=== PATIENT | female | born 1965 | race Caucasian/White ===

== ENCOUNTER 2024-10-30 14:41 | Outpatient (AMB) | payer OTHER, SELFPAY ==
--- NOTE | 2024-10-30 14:45 | A.OFFVIS_ITS ---
Vital Signs 10/30/24 14:54 Height 5 ft Weight 137 lb 2 oz BMI 26.8 BP 130/88 Blood Pressure Location Lt brachial Position Sitting Pulse 92 Pulse Source Pulse Oximeter Pulse Oximetry (%) 98 Oxygen Delivery Method Room Air Intake Visit Reasons: ENP-Migraines Intake Note: Patient presents to the office today as a new patient visit for migraines. Allergies shellfish derived Allergy (Severe, Verified 10/30/24 14:58) Anaphylaxis Medication List - Last Reconciled 10/30/24 by BHARATI Cadet albuterol sulfate 90 mcg/actuation inhalation dupilumab (Dupixent) mg subcut escitalopram oxalate 5 mg PO DAILY estradiol-norethindrone acet 1-0.5 mg 1 tab PO DAILY gabapentin mg PO nortriptyline mg PO ondansetron HCl 8 mg PO BID rimegepant (Nurtec ODT) mg PO HPI Comments Details: History of Present Illness The patient is a 59-year-old female presenting with migraines. Patient was previously followed by Dr Hinojosa, in upon his fpc she was seen once at [facility], however this was not a good fit for her.? And thus, patient was referred here for further evaluation and management The patient reports the onset of migraines in early 2019, coinciding with the start of ID-. She did not have a history of similar headaches prior to this period, although migraines do run in her family, with her sister having a history of migraines since adolescence. The patient describes the migraines as multifaceted headache episodes occurring four to five days a week, primarily featuring a sensation of pressure in her head, often associated with dizziness or vertigo. These episodes of vertigo began after an illness that was diagnosed as the flu but coincided with the COVID-19 pandemic. The migraines were initially preceded by a bout of vertigo significant enough to impair her daily functioning. The vertigo was associated with a sensation of being off balance, as if on a boat, although she notes it has improved over time but persists intermittently. Vestibular physical therapies w/ PT Yamila Hidalgo at [facility] and medications such as meclizine were attempted for vertigo, with limited success. She has not seen improvement in her migraines with current treatment regimens. Migraines manifest with head pain, characterized by a swelling sensation and pressure often upon waking, which may subside throughout the day. The patient notes associated symptoms include smell sensitivity, occasional light sensitivi ty, nausea, and blurred vision during headache attacks. She avoids laying down as she feels exacerbates her symptoms and expresses a preference for remaining active during the less severe episodes.? Patient does note that the nortriptyline 50 mg daily at bedtime, helps her his her attention and focus- as she states helps her to be able to read longer without becoming distracted and developing a headache. Sleep apnea and fatigue has been noted, and a mandibular device has been used unsuccessfully for management due to discomfort, while a CPAP machine was not tolerated. Results - MRI brain w/wo: No retrocochlear abnormality. Small foci of T2 prolongation in the supratentorial white matter - Home sleep study: Sleep apnea w/ AHI 8/hr, present but below threshold for surgical intervention such as Inspire - Allergy testing: Indicated multiple allergies Review of Systems - Neurologic: Reports head pressure, dizziness, smell sensitivity, blurred vision, nausea, numbness, tingling. - Ophthalmologic: Denies visual loss. - Musculoskeletal: Reports generalized stiffness, specific right knee pain and swelling. - Respiratory: Asthma improved with Dupixent. - Dermatologic: Eczema managed with Dupixent. - Cardiovascular: Reports prior high blood pressure- improved w/ diet. - Psychiatric: Reports anxiety related to symptomology. Review of pertinent positive and negative past medical history: History of neurological disorders: Denies History of ear Nose and Throat disorders: Denies History of TMJ disorders: Denies History of musculoskeletal disorders: Denies History of musculoskeletal injuries: Denies History of concussion: Denies History of head injury: Denies History of coma: Denies History of mood disorder: Denies History of respiratory disorders: Asthma History of dermatological disorder: Eczema- improved on Dupixent History of sleep apnea: Mild ALIYA with AHI 8/hr.? Did not tolerate PAP therapy.? Have mandibular device, which she does not tolerate well.? Sleeps with head elevated History of cardiovascular disease: hyperlipidemia (previously resolved) History of hematological or coagulation disorders: Denies History of cancer: Denies History of anemia: History of anemia in childhood History of metabolic or endocrine disorders: Denies History of seizure: Denies History of syncope: Denies History of genitourinary disorders: Denies History of kidney stones: Denies History of gastrointestinal disorders: Constipation History of constipation: Yes History of gynecological disorders: Menopause Reproductive health status: Desire for family planning: Denies Current use of control: None Menstrual cycle is: Postmenopausal Surgical History: - NONE Family History - Sister with migraine - Family history of stroke-on father's side. - No known familial history of cancer Headache questionnaire: Onset of initial headache symptoms: 2019 Initial precipitating cause of this headache: Possibly related to menopause or COVID Previous workup for this headache: MRI, vestibular therapy Types of headache disorders: Migraine Typical headache characteristics of this headache: Prodrome symptoms: Denies Aura: Denies Headache pain intensity: Moderate to severe Location, quality, characteristics of this headache: All over, pressure-like Associated migraine symptoms: Smell sensitivity, nausea, Not right and space dizziness, blurry vision Headache postdrome: Denies Headache aggravating factors: Stress, weather, altitude, travel, sleep Headache triggers: Stress, weather, altitude, travel, sleep Time of day this headache usually occurs: Morning Headache frequency:? Daily, but more bothersome 4 days a week Headcahe duration: 4-6 hours or all day Impact of this headache? on patient's quality of life: Severe Current acute medication? used for this headache: Nurtec Current preventative medication used for this headache: Nortriptyline, Gabapentin Current non-pharmacological interventions? for this headache: Cold caps, pressure application by Lifestyle considerations: Sleep routine: Usual bedtime: 8pm Usual? wake-up time: 7:30 am Sleep difficulties: Yes, interrupted sleep Snoring: Yes Apneas: Yes Gasping arousals: Denies Excessive daytime sleepiness: Yes Fatigue: Yes Restless sleep: Yes Nocturnal leg cramps: Yes, sometimes Restless leg syndrome: Denies Bruxism: Denies Nutritional intake: Quantity of fluid intake per day: approx 64oz, but drinks water, coconut water, and seltzer Quality of usual diet: Healthy Caffeine use: One cup of coffee per day Alcohol use: Occasionally drinks wine Marijuana use: Denies Tobacco use: Denies Other illicit substance use: Denies Fitness routine: Frequency of physical exercise: Twice a week Type physical exercise: Walking, swimming, aerobic classes Employment status: Current employment or occupation: None Shift work: None [facility] [employer] Medical History (Updated 10/30/24 @ 17:37 by BHARATI Cadet) Anemia Vertigo Seasonal allergies Right shoulder pain ALIYA (obstructive sleep apnea) Migraine headache Menopausal symptoms HTN (hypertension) Genitourinary syndrome of menopause Eczema Asthma Anxiety and depression Surgical History (Updated 10/30/24 @ 14:53 by Rowena Girard CMA) H/O colonoscopy Family History (Updated 10/30/24 @ 15:02 by Rowena Girard CMA) Mother Stroke Dementia Father Diabetes Social History (Updated 10/30/24 @ 15:03 by Rowena Girard CMA) Household Members: Spouse Housing: House Alcohol intake: current Alcohol intake frequency: a few times a week Alcohol type: wine Patient Tobacco Use Status: Never used Tobacco e-Cigarette/Vaping Use: Never Used Physical Exam Vital Signs: Last Vital Signs Pulse 92 10/30/24 14:54 BP 130/88 10/30/24 14:54 Pulse Ox 98 10/30/24 14:54 Oxygen Delivery Method Room Air 10/30/24 14:54 BMI result Body Mass Index 26.8 Const Orientation/consciousness: patient oriented x3 Resp Effort & Inspection: normal respiratory effort and able to speak in complete sentences Neuro Other: Smaller mouth opening and posterior oropharynx Mild diffuse bilateral facial palpable tenderness. Mild forward head posture Bilateral posterior cervical tightness, with overall decreased range of motion. Negative bilateral Spurling Mild swaying on Romberg. Intact tandem gait General: patient oriented x3 Cranial nerves: Yes CN's II-XII intact bilaterally Cognition (Neuro): normal cognition Gait exam (Neuro): Normal gait present Motor exam (neuro): 5/5 motor strength present throughout Deep tendon reflexes (DTR's): Right triceps reflex intensity grade: 2+, Left triceps reflex intensity grade: 2+, Rt Biceps (C5, C6): 2+, Left biceps reflex intensity grade: 2+, Right brachioradialis reflex intensity grade: 2+, Left brachioradialis reflex intensity grade: 2+, Right patellar reflex intensity grade: 3+ and Left patellar reflex intensity grade: 3+ Coordination: [id number] test normal and tandem gait normal Pupils: Normal pupillary reactivity/response: bilateral Psych Appearance: grossly normal Mental Status: mental status grossly normal Speech and movement: Normal speech and movement present Affect: normal affect Attitude: cooperative Thought process: Normal thought process present Assessment & Plan Assessment & Plan (1) Chronic migraine without aura: Code(s): G43.709 - Chronic migraine without aura, not intractable, without status migrainosus Category: Medical Qualifiers: Status migrainosus presence: without status migrainosus Intractability: not intractable Qualified Code(s): G43.709 - Chronic migraine without aura, not intractable, without status migrainosus (2) Fatigue: Code(s): R53.83 - Other fatigue Category: Medical Qualifiers: Fatigue type: unspecified Qualified Code(s): R53.83 - Other fatigue Plan Discussion Notes After discussing the patient's history and current symptoms, which are consistent with a diagnosis of chronic migraine without aura and/or vestibular migraine I advised considering changes to current migraine management. The option of replacing nortriptyline with Qulipta was presented due to ongoing headaches and nortriptyline side effects. Botox therapy was highlighted as a future alternative if headache pattern persists. Patient was informed of lifestyle adjustments, especially in exercise and hydration intake, to minimize migraine triggers. Advised following up for additional lab work and possible referral back to vestibular therapy or practice-based exercises. Pt advised to undergo: Fasting labs to assess for underlying etiologies of fatigue and restlessness For overall headache management: * Optimize good self-care, including but not limited to maintaining a healthy diet, adequate fluid intake, adequate sleep, and engaging in regular physical activity. * Patient encouraged to trial gentle yoga or water based exercise classes. * Track headaches, especially after any treatment regimen changes. Mandae is one of many headache tracking apps. * Information shared on non-pharmacological interventions which may help to alleviate headache attack burden. For light sensitivity: Patient may benefit from trying blue light filtering glasses, green glasses, green light therapy. For sound sensitivity: Patent may benefit from trying noise cancellation ear plugs. * For fatigue with history of mild ALIYA: * Check labs for underlying etiologies * Encouraged to sleep with head elevated * Advised that she would not be a candidate for inspire therapy based on her previous home sleep study results showing AHI 8 per hour. * Follow-up with ENT/Dr. Damian for allergy treatments * Future considerations: In-lab PSG * Future considerations: Revisiting vestibular PT. For acute headache treatment: Discussed importance of taking acute medications at the first sign of headache, however stressed importance of avoiding acute medication overuse (especially with combined headache medications). Continue Rimegepant ODT (Nurtec ODT) 75mg, 1 tab at onset of headache. Max of 1 tabs (75mg) per 24 hours. * May adjunct with OTC Tylenol 650mg q 4 hours, Ibuprofen 600mg q 6 hours, or Naproxen 440mg q 12 hrs prn. Do not take ibuprofen or naproxen on the same day that she uses meloxicam for right knee pain. * Potential adverse effects, include but are not limited to fatigue, nausea, dry mouth, constipation. Previous acute migraine medication trials: Sumatriptan-ineffective. Acute migraine medication contraindications: None at this time For headache prevention medication: Preventative medications should be taken routinely as prescribed for best effect, it may take several weeks for full effect to take effect. Start Riboflavin 400mg daily in a.m. Continue Magnesium citrate 500 mg daily Start Atogepant (Qulipta) 60mg daily at bedtime. Potential side effects include but are not limited to drowsiness, nausea, constipation, weight loss. Continue nortriptyline 50 mg daily at bedtime. * If Qulipta effective, goal is to wean patient off of nortriptyline as this maybe contributing to dry eye and constipation. Continue gabapentin 300 mg at bedtime-use for skin sensitivity/allodynia. Previous migraine prevention medication trials: Amitriptyline-ineffective, Topiramate-cause mood changes, and Ajovy-ineffective after 3 months. Migraine prevention medication contraindications: Beta-blockers due to symptomatic asthma diagnosis. Future considerations: Botox for chronic migraine. Will follow-up upon review of above and patient to follow-up in clinic in 3-4 months or sooner prn. Patient was informed and verbally consented to the use of an ambient scribe for clinic note documentation during this visit. Orders: Orders Comprehensive Met. Panel Today D64.9 - Anemia, unspecified, I10 - Essential (primary) hypertension Homocysteine Today D64.9 - Anemia, unspecified, I10 - Essential (primary) hypertension Vitamin B12 Today D64.9 - Anemia, unspecified, I10 - Essential (primary) hypertension Complete Blood Count Auto Diff Today D64.9 - Anemia, unspecified, I10 - Essential (primary) hypertension Ferritin Today D64.9 - Anemia, unspecified, I10 - Essential (primary) hypertension Methylmalonic Acid Today D64.9 - Anemia, unspecified, I10 - Essential (primary) hypertension Folate Today D64.9 - Anemia, unspecified, I10 - Essential (primary) hypertension IRON PROFILE Today D64.9 - Anemia, unspecified, I10 - Essential (primary) hypertension Medications: New atogepant (Qulipta) 60 mg PO BEDTIME 30 tabs 6RF 30 days G43.709 - Chronic migraine without aura, not intractable, without status migrainosus rimegepant (Nurtec ODT) 75 mg PO DAILY PRN 16 tabs 6RF migraine headache 30 days MDD 1 tab meloxicam 7.5 mg PO DAILY PRN riboflavin (vitamin B2) 400 mg PO DAILY 30 tabs 6RF 30 days G43.709 - Chronic m igraine without aura, not intractable, without status migrainosus Coding Level of Care Code New Pt Level 4 (96085) Diagnoses Chronic migraine without aura without status migrainosus, not intractable G43.709 Status migrainosus presence: without status migrainosus Intractability: not intractable Fatigue, unspecified type R53.83 Fatigue type: unspecified
[2024-10-30 14:54] VITALS: BP 130/88; PULSE 92; O2SAT 98; BMI 26.8
--- OUTSIDE RECORDS SUMMARY | 2024-10-30 15:57 | XMS_ITS | Patient Health Record ---
Author Organization [employer] [facility] Address [address] [place] [address] Care Team Providers Care Rodbuster Name Role Phone Linda De La Paz Unavailable [phone] Reason For Referral No Information Medications Medication SIG (Take, Route, Frequency, Duration) Notes Start Date End Date Status Effexor XR 37.5 MG 1 capsule with food Orally Once a day; Duration: 30 day(s) 02/26/2015 Active Loratadine 1 tablet Orally Once a day Active ZyrTEC Allergy 10 MG 1 tablet Orally Once a day Active Vivelle-Dot 0.0375 MG/24HR 1 patch to sk in Transdermal TWICE WEEKLY; Duration: 90 days 08/26/2015 Active Provera 5 MG 1 tablet Orally Once a day, DAYS 1 TO 12; Duration: 90 days 08/26/2015 Active Vivelle-Dot 0.05 MG/24HR 1 patch to skin Transdermal TWICE WEEKLY; Duration: 90 days 11/25/2015 Active Prometrium 200 MG 1 CAPSULE Orally Onc e a day FOR 15 DAYS Q 3 MONTHS; Duration: 90 days 11/25/2015 Active Albuterol Active Problems Problem Type SNOMED Code ICD Code Onset Dates Problem Status W/U Status Risk Notes Problem Menopausal and female climacteric states (N95.1) Active confirmed Plan Of Treatment Pending Test Test Name Order Date Pap IG, Ct, rfx HPV all pth 05/31/2014 MAMMOGRAM, SCREENING 05/31/2014 Insurance Providers Payer Name Payer Address Payer Phone Subscriber Number Group Number Insured Name Patient Relationship to Insured Coverage Start Date Coverage End Date [facility] [address] [place] [address] [id number] [employer] MAC Self - patient is the insured Medical (General) History Medical History History ICD Code Menopausal and female climacteric states N95.1 Generalized skin eruption due to drugs a nd medicaments taken internally L27.0 Other asthma J45.998 Allergic rhinitis, unspecified J30.9 Hormone replacement therapy (postmenopau hanane) Z79.890 Surgical History Surgery Date(Month/Year) Left Knee Tumor Removed / Drained, [facility] Hospitalization History Reason Date(Month/Year) 3 Vaginal Deliveries
--- OUTSIDE RECORDS SUMMARY | 2024-10-30 15:57 | XMS_ITS | Clinical Summary ---
Author Organization [employer] Address [address] [place] [address] Care Team Providers Care Interstate Planner Name Role Phone Unavailable Primary Care Provider Unavailabl e Social History Tobacco Use Types Packs/Day Years Used Date Smoking Tobacco: Never Assessed Comments Unknown Sex and Gender Information Value Date Recorded Sex Assigned at Not on file Legal Sex Female 2:13 AM EST Gender Identity Not on file Sexual Orientation Not on file Plan of Treatment Health Maintenance Due Date Last Done Comments CT Colonography 1966 Colonoscopy 1966 Colorectal Cancer Screening 1966 Depression Screening 1966 FIT DNA/Cologuard 1966 FIT 1966 FOBT 1966 HIV Screening 1966 SDOH Screening 1966 Sigmoidoscopy 1966 Disability Screening 1966 Alcohol/Substance Use Screening 1978 Tobacco Screening 1978 Hepatitis C Screening 02/01/1984 DTaP/Tdap/Td Vaccines (1 - Tdap) 1985 Hepatitis B Vaccines (1 of 3 - 19+ 3-dose series) 1985 Pap Smear 1987 Cervical Cancer Screening 02/01/1996 HPV/Cotest 02/01/1996 Mammogram 2006 Pneumococcal Vaccine: 50+ Ye ars (1 of 1 - PCV) 02/01/2016 Zoster Vaccines (1 of 2) 02/01/2016 COVID-19 Vaccine ( - 2023-2 5 season) 2023 Influenza Vaccine (#1) 2024 RSV Patients and Pa tients Aged 60 years or older (1 - 1-dose 75+ series) 2041 HIB Vaccines Aged Out No longer eligi ble based on patient's age to complete this topic HPV Vaccines Aged Out No longer eligi ble based on patient's age to complete this topic Hepatitis A Vaccines Aged Out No long er eligible based on patient's age to complete this topic IPV Vaccines Aged Out No longer eligi ble based on patient's age to complete this topic Meningococcal B Vaccine Aged Out No l onger eligible based on patient's age to complete this topic Meningococcal Vaccine Aged Out No lakshmi ivan eligible based on patient's age to complete this topic RSV under 20 months Aged Out No longe r eligible based on patient's age to complete this topic Rotavirus Vaccines Aged Out No longer eligible based on patient's age to complete this topic
--- OUTSIDE RECORDS SUMMARY | 2024-10-30 15:57 | XMS_ITS | Data Portability ---
Author Organization [facility], [facility] Address [address] [place] [address] Care Team Providers Care Case Filler Name Role Phone UMANG ALAN Primary Care Provider Assessment No assessment recorded. Plan of Treatment Reminders Order Date Submit Date Provider Last Modified By Organization Details Last Modified Time Details Appointments RECHECK 15 2024 11:00A M Omar Chandler PA-C Not available Not available Not available Lab None recorded . Referral None recorded . Procedures None recorded . Surgeries None recorded . Imaging None recorded . Medication Orders None recorded . Patient TargetsNo targets recorded. Patient InstructionsNo instructions recorded. Reason for Referral None Reported. Results Created Date Observation Date Name Description Value Unit Range Abnormal Flag Note LastModifiedBy Organization Detail LastModifiedTime 12/18/19 24 10/23/2022 [email or web address] ng/jill doe tic resul t No observ ation record ed. [email or web address] Not Available 11/19 01:09:28 Result Notes None recorded. Problems Name Problem SNOMED Code Status Onset Date Resolution Date Notes Provider Name and Address Organization Details Recorded Time Osteoarthritis of knee 842053892 Active 2023 Omar Chandler PA-C [address], [place], [address], [facility] 06:42:43 Problem Notes None recorded. Procedures Surgical History Date Name Laterality Status Provider Name and Address Organization Details Recorded Time 08/30/2024 Sports Knee 4&1 completed Omar Chandler PA-C [address], [place], [address], [facility] 08/30/2024 13:50:21 06/07/2024 Sports Knee 4&1 completed Omar Chandler PA-C [address], [place], [address], [facility] 06/05/2024 06:10:20 03/06/2024 Sports Knee 4&1 completed Omar Chandler PA-C [address], [place], [address], [facility] 03/06/2024 06:25:46 11/24/2023 Sports Knee 4&1 completed Omar Chandler PA-C [address], [place], [address], [facility] 11/24/2023 05:43:56 08/18/2023 Sports Knee 4&1 completed Omar Chandler PA-C [address], [place], [address], [facility] 08/18/2023 06:42:35 Imaging Results None recorded. Procedure Notes None recorded. Medical Equipment None Reported. Medications Name Sig Start Date Stop Date Status Note LastModified by Organization Details LastModified Time cetirizine 10 mg tablet TAKE 1 TABLET BY MOUTH EVERY DAY active Not Available Not Available No t Available valacyclovir 1 gram tablet TAKE 1 TABLET BY MOUTH EVERY 12 HOURS FOR 7 DAYS active Not Available Not Available N ot Available ondansetron HCl 8 mg tablet TAKE ONE TABLET BY MOUTH TWICE A DAY active Not Available Not Available No t Available meloxicam 15 mg tablet TAKE 1 TABLET BY MOUTH EVERY DAY WITH FOOD active Not Available Not Available No t Available topiramate 25 mg tablet TAKE 1 TABLET AT BEDTIME, INCREASE BY 1 TABLET AT BEDTIME PER WEEK NEEDED TO 4 TABLETS AT BEDTIME active Not Available Not Available No t Available estradiol-no rethindrone acet 1 mg-0.5 mg tablet TAKE ONE TABLET BY MOUTH EVERY DAY active Not Available Not Available No t Available minoxidil 2.5 mg tablet TAKE 1/2 TABLET BY MOUTH IN THE MORNING active Not Available Not Available Not Available nortriptylin e 25 mg capsule TAKE TWO CAPSULES BY MOUTH EVERY DAY AT BEDTIME ; MAY INCREASE BY 1/NIGHT EVERY 2 WEEKS, UP TO 5 ONCE DAILY AT BEDTIME active Not Available Not Available No t Available betamethason e dipropionate 0.05 % topical cream PLEASE SEE ATTACHED FOR DETAILED DIRECTIONS active Not Available Not Available N ot Available gabapentin 300 mg capsule TAKE ONE CAPSULE BY MOUTH EVERY DAY AT BEDTIME ; INCREASE BY TAKE ONE CAPSULE BY MOUTH EVERY OTHER DAY ; UP TO 2 THREE TIMES A DAY active Not Available Not Available No t Available epinephrine 0.3 mg/0.3 mL injection, auto-injecto r USE 1 AUTO INJECTOR PEN NEEDED ; SINGLE USE active Not Available Not Available N ot Available estradiol 0.01% (0.1 mg/gram) vaginal cream APPLY 0.5 GRAMS AT VAGINAL OPENING DAILY AT BEDTIME X 2 WEEKS, THEN 0.5 GRAMS 2-3X PER WEEK active Not Available Not Available No t Available albuterol sulfate HFA 90 mcg/actuatio n aerosol inhaler TAKE 2 PUFFS BY MOUTH EVERY 4 TO 6 HOURS NEEDED active Not Available Not Available No t Available propranolol 20 mg tablet TAKE 1 TABLET BY MOUTH EVERY DAY active Not Available Not Available No t Available ondansetron 4 mg disintegrati ng tablet DISSOLVE ONE TABLET BY MOUTH EVERY 6 HOURS NEEDED active Not Available Not Available No t Available bupropion HCl XL 150 mg 24 hr tablet, extended release TAKE 1 TABLET BY MOUTH EVERY 24 HOURS active Not Available Not Available No t Available escitalopram 5 mg tablet TAKE ONE TABLET BY MOUTH EVERY DAY active Not Available Not Available No t Available topiramate 50 mg tablet TAKE 3 TABLETS BY MOUTH DAILY AT BEDTIME active Not Available Not Available N ot Available nitrofuranto in monohydrate/ macrocrystal s 100 mg capsule TAKE 1 CAPSULE BY MOUTH TWICE A DAY FOR 7 DAYS active Not Available Not Available No t Available pregabalin 100 mg capsule TAKE 1 CAPSULE BY MOUTH TWICE DAILY active Not Available Not Available No t Available diclofenac 1 % topical gel APPLY TOPICALLY FOUR TIMES A DAY NEEDED PAIN active Not Available Not Available Not Available Wixela Inhub 100 mcg-50 mcg/dose powder for inhalation TAKE 1 PUFF BY MOUTH EVERY 12 HOURS IN THE MORNING AND IN THE EVENING active Not Available Not Available No t Available Nurtec ODT 75 mg disintegr[address] ng tablet PLACE 1 TABLET ON TOP OF TONGUE ; ALLOW TO DISSOLVE THEN SWALLOW BY MOUTH ONCE NEEDED FOR MIGRAINE ; MAX 1 DOSE / 24 HOURS active Not Available Not Available N ot Available Ajovy 225 mg/1.5 mL subcutaneous auto-injecto r INJECT 225 MG INTO THE SKIN EVERY 28 DAYS active Not Available Not Available No t Available Dupixent 300 mg/2 mL subcutaneous pen injector active Not Available Not Available Not Available Vitals Date Recorded Body height Body mass index (BMI) Body weight Provider Name and Address Organization Details Last Updated DateTime 06/07/2024 152.4 cm 26.6 kg/m2 93277.56 g Omar Chandler PA-C [address] [facility], [place], [address], [facility] 06/07/2024 13:25:49 Date Recorded Body height Body mass index (BMI) Body weight Provider Name and Address Organization Details Last Updated DateTime 08/18/2023 152.4 cm 26.6 kg/m2 20321.56 g Omar Chandler PA-C [address] [facility], [place], [address], [facility] 08/18/2023 10:08:00 Date Recorded Body height Body mass index (BMI) Body weight Provider Name and Address Organization Details Last Updated DateTime 08/30/2024 152.4 cm 26.6 kg/m2 97252.56 g Omar Chandler PA-C [email or web address] [facility], [place], [address], [facility] 08/30/2024 14:05:19 Date Recorded Body height Body mass index (BMI) Body weight Provider Name and Address Organization Details Last Updated DateTime 11/24/2023 152.4 cm 26.6 kg/m2 93012.56 g Omar Chandler PA-C [address] [facility], [place], [address], [facility] 11/24/2023 09:10:34 Date Recorded Body height Body mass index (BMI) Body weight Provider Name and Address Organization Details Last Updated DateTime 03/06/2024 152.4 cm 26.6 kg/m2 43037.56 g Omar Chandler PA-C [address], [place], [address], [facility] 03/06/2024 09:17:00 Social History Question Answer Notes LastModified by Organizat ion Details LastModified Time What Is Your Relationship Status? [email or web address] Information not available 08/30/2024 Sex: Unknown Functional Status None recorded. Mental Status None recorded. Family History Nothing Reported. Medical History Condition Response Anxiety/Depression Y Acid Reflux (GERD) Y Asthma Y Gynecological HistoryNo gynecological history recorded. Obstetrics History GPAL:G 0 P 0 0 0 0 Past Encounters Encounter ID Performer Location Encounter Start Date Encounter Closed Date Diagnosis/Indication Diagnosis SNOMED-CT Code Diagnosis ICD10 Code Diagnosis Note [id number] Omar Chandler PA-C [address] [place] [address] 08/18/2023 09:48:34 08/31/2023 14:16:20 Osteoarthritis of knee 268821831 M17.9 [id number] Omar Chandler PA-C [address] [place] [address] 11/24/2023 09:05:47 12/15/2023 10:33:11 Osteoarthritis of knee 390091310 M17.9 [id number] Omar Chandler PA-C [address] [place] [address] 03/06/2024 09:07:19 03/23/2024 14:58:16 Osteoarthritis of knee 364045222 M17.9 [id number] Omar Chandler PA-C [facility] [address] [place] [address] 06/07/2024 13:16:25 06/22/2024 15:05:15 Osteoarthritis of knee 056645540 M17.9 [id number] Omar Chandler PA-C [facility] [address] [place] [address] 08/30/2024 13:51:31 09/04/2024 08:34:01 Osteoarthritis of knee 830879392 M17.9 Health Concerns Section Related Observation LastModified by Organization Detai ls LastModified Time None Recorded Concern Status LastModified by Organization Details LastModified Time None Recorded Advance Directives Directive None Recorded Payers Insurance Date Sequence Insurance Name Policy Number Policy Judd Covered Member ID Judd Member ID Guarantor Name 08/30/2024 2 [place] [facility] Danay Morley [id number] Danay Morley 08/30/2024 1 [facility] [id number] Danay Morley [id number] Danay Morley Notes Date Note Type Note Provider Name and Address Organization Details Recorded Time 08/18/2023 text/html I am seeing the patient today under the supervision of Dr. Wilson who was available but who did not see the patient. HPI: Patient is seen today for follow-up evaluation of their. Right knee MRI. She continues to have a fair amount of day-to-day pain with weightbearing activity. She has been evaluated by my colleague MRI scan was ordered. She is back today to review findings. MRI reviewed previously opted to go through conservative treatment. She admittedly has not been a lot of physical therapy exercises reports some increased pain MRI findings: Independent reviewed today of the right knee. Findings include mild degenerative signal in the posterior meniscus, but full-thickness chondral defect involving medial femoral condyle, patellofemoral joint with mild lateral facet arthrosis, large complex, septated elam cyst. Intact cruciate and collateral ligaments. PHYSICAL EXAMINATION: The patient is well appearing and in no apparent distress. Alert and oriented x3. Gait is symmetric.Right Knee ROM is full, stability intact both anterior, posterior, and varus/valgus stress at both 0 and 30 degrees, Significant Medial compartment and patellofemoral tenderness. Negative Cecilia's maneuver. Patella crepitus, 1+ effusion, 4/5 strength. IMPRESSION: Right knee medial femoral condyle full-thickness chondral defect with small inconsequential medial meniscus tear. PLAN: Discussed nature the findings today, I think she is a poor candidate for knee arthroscopy with relatively low yield. For that reason, I would recommend conservative treatment, aspiration, injection therapy. Omar Chandler PA-C [address] [facility] [address], [place], [address], [facility] 08/18/2023 10:36:32 11/24/2023 text/html I am seeing the patient today under the supervision of Dr. Guerra who was available but who did not see the patient. HPI: Patient is seen today for follow-up evaluation of their. Right knee MRI. She continues to have a fair amount of day-to-day pain with weightbearing activity. She has been evaluated by my colleague MRI scan was ordered. She is back today to review findings. MRI reviewed previously opted to go through conservative treatment. She admittedly has not been a lot of physical therapy exercises reports some increased pain MRI findings: Independent reviewed today of the right knee. Findings include mild degenerative signal in the posterior meniscus, but full-thickness chondral defect involving medial femoral condyle, patellofemoral joint with mild lateral facet arthrosis, large complex, septated elam cyst. Intact cruciate and collateral ligaments. PHYSICAL EXAMINATION: The patient is well appearing and in no apparent distress. Alert and oriented x3. Gait is symmetric.Right Knee ROM is full, stability intact both anterior, posterior, and varus/valgus stress at both 0 and 30 degrees, Significant Medial compartment and patellofemoral tenderness. Negative Cecilia's maneuver. Patella crepitus, 1+ effusion, 4/5 strength. IMPRESSION: Right knee medial femoral condyle full-thickness chondral defect with small inconsequential medial meniscus tear. PLAN: Discussed nature the findings today, I think she is a poor candidate for knee arthroscopy with relatively low yield. For that reason, I would recommend conservative treatment, aspiration, injection therapy. Omar Chandler PA-C [address] [facility] [address], [place], [address], [facility] 11/24/2023 09:49:02 03/06/2024 text/html I am seeing the patient today under the supervision of Dr. Guerra who was available but who did not see the patient.HPI: Patient is seen today for follow-up evaluation of their. Right knee MRI. She continues to have a fair amount of day-to-day pain with weightbearing activity. She has been evaluated by my colleague MRI scan was ordered. She is back today to review findings. MRI reviewed previously opted to go through conservative treatment. She admittedly has not been a lot of physical therapy exercises reports some increased pain Interval history: Danay returns today for follow-up evaluation regarding her right knee. She has intermittent pain and discomfort she has short-term benefit from previous corticosteroid injection. She is not ready to the point where she wants to consider total knee arthroplasty.MRI findings: Independent reviewed today of the right knee. Findings include mild degenerative signal in the posterior meniscus, but full-thickness chondral defect involving medial femoral condyle, patellofemoral joint with mild lateral facet arthrosis, large complex, septated elam cyst. Intact cruciate and collateral ligaments.PHYSICAL EXAMINATION: The patient is well appearing and in no apparent distress. Alert and oriented x3. Gait is symmetric.Right Knee ROM is full, stability intact both anterior, posterior, and varus/valgus stress at both 0 and 30 degrees, Significant Medial compartment and patellofemoral tenderness. Negative Cecilia's maneuver. Patella crepitus, 1+ effusion, 4/5 strength. IMPRESSION: Right knee medial femoral condyle full-thickness chondral defect with small inconsequential medial meniscus tear. PLAN: Discussed nature the findings today, I think she is a poor candidate for knee arthroscopy with relatively low yield. For that reason, I would recommend conservative treatment, aspiration, injection therapy. Omar Chandler PA-C [address] [facility] [address] [facility], [place], [address], [facility] 03/06/2024 09:53:40 06/07/2024 text/html I am seeing the patient today under the supervision of Dr. Guerra who was available but who did not see the patient.HPI: Patient is seen today for follow-up evaluation of their. Right knee MRI. She continues to have a fair amount of day-to-day pain with weightbearing activity. She has been evaluated by my colleague MRI scan was ordered. She is back today to review findings. MRI reviewed previously opted to go through conservative treatment. She admittedly has not been a lot of physical therapy exercises reports some increased pain Clinical Update: Danay returns today for follow-up evaluation regarding her right knee. She has intermittent pain and discomfort she has short-term benefit from previous corticosteroid injection. She is not ready to the point where she wants to consider total knee arthroplasty.MRI findings: Independent reviewed today of the right knee. Findings include mild degenerative signal in the posterior meniscus, but full-thickness chondral defect involving medial femoral condyle, patellofemoral joint with mild lateral facet arthrosis, large complex, septated elam cyst. Intact cruciate and collateral ligaments.PHYSICAL EXAMINATION: The patient is well appearing and in no apparent distress. Alert and oriented x3. Gait is symmetric.Right Knee ROM is full, stability intact both anterior, posterior, and varus/valgus stress at both 0 and 30 degrees, Significant Medial compartment and patellofemoral tenderness. Negative Cecilia's maneuver. Patella crepitus, 1+ effusion, 4/5 strength. IMPRESSION: Right knee medial femoral condyle full-thickness chondral defect with small inconsequential medial meniscus tear. PLAN: Discussed nature the findings today, I think she is a poor candidate for knee arthroscopy with relatively low yield. For that reason, I would recommend conservative treatment, aspiration, injection therapy. Omar Chandler PA-C [address] [facility] [address] [address], [place], [address], [facility] 06/07/2024 13:55:07 08/30/2024 text/html I am seeing the patient today under the supervision of Dr. Merchant who was available but who did not see the patient.HPI: Patient is seen today for follow-up evaluation of their. Right knee MRI. She continues to have a fair amount of day-to-day pain with weightbearing activity. She has been evaluated by my colleague MRI scan was ordered. She is back today to review findings. MRI reviewed previously opted to go through conservative treatment. She admittedly has not been a lot of physical therapy exercises reports some increased pain Clinical Update: Danay returns today for follow-up evaluation regarding her right knee. She has intermittent pain and discomfort she has short-term benefit from previous corticosteroid injection. She is not ready to the point where she wants to consider total knee arthroplasty.MRI findings: Independent reviewed today of the right knee. Findings include mild degenerative signal in the posterior meniscus, but full-thickness chondral defect involving medial femoral condyle, patellofemoral joint with mild lateral facet arthrosis, large complex, septated elam cyst. Intact cruciate and collateral ligaments.PHYSICAL EXAMINATION: The patient is well appearing and in no apparent distress. Alert and oriented x3. Gait is symmetric.Right Knee ROM is full, stability intact both anterior, posterior, and varus/valgus stress at both 0 and 30 degrees, Significant Medial compartment and patellofemoral tenderness. Negative Cecilia's maneuver. Patella crepitus, 1+ effusion, 4/5 strength. IMPRESSION: Right knee medial femoral condyle full-thickness chondral defect with small inconsequential medial meniscus tear. PLAN: Discussed nature the findings today, I think she is a poor candidate for knee arthroscopy with relatively low yield. For that reason, I would recommend conservative treatment, aspiration, injection therapy. Omar Chandler PA-C [address], [place], [address], [facility] 08/30/2024 15:00:00 OBGyn Episode No OBEpisode recorded.
--- OUTSIDE RECORDS SUMMARY | 2024-10-30 15:57 | XMS_ITS | Clinical Summary ---
Author Organization [facility] Address [address] [place] [address] Care Team Providers Care Scaffold Worker Name Role Phone Unavailable Primary Care Provider Unavailabl e Social History Tobacco Use Types Packs/Day Years Used Date Smoking Tobacco: Never Assessed Comments Unknown Sex and Gender Information Value Date Recorded Sex Assigned at Not on file Legal Sex Female 1:14 PM EST Gender Identity Not on file Sexual Orientation Not on file Plan of Treatment Health Maintenance Due Date Last Done Comments Hepatitis C Virus Screening 1966 HIV Screening 1979 DTaP/Tdap/Td Vaccines (1 - Tdap) 1985 Hepatitis B Vaccines (1 of 3 - 19+ 3-dose series) 01/17 Pap Smear (Ages 21-65) 1987 Mammogram 2006 Colonoscopy 2011 Pneumococcal Vaccines 50+ (1 of 1 - PCV) 02/01/2016 Zoster (Shingles) Vaccine (1 of 2) 02/01/2016 COVID-19 Vaccine ( - season) 2023 Influenza Vaccine 11/17/2024 Insurance [facility]
--- OUTSIDE RECORDS SUMMARY | 2024-10-30 15:57 | XMS_ITS | Clinical Summary ---
Author Organization [facility] Address [address] [place] [phone] Phone Care Team Providers Care Bisque Finisher Name Role Phone Ligia Pringle MD Primary Care Provider [phone] Allergies No known active allergies Medications albuterol HFA (Proventil HFA) 90 mcg/actuation inhaler Inhale 2 puffs by mouth every 6 (six) hours if needed for wheezing. 6.7 g 09/29/19 26 Active fluticasone propion-salmete roL (ADVAIR DISKUS) 100-50 mcg/dose diskus inhalerIndicati ons:bronchospas m prevention with COPD,maintenanc e therapy for asthma Inhale 1 puff by mouth 2 (two) times a day. Rinse mouth with water after use to reduce aftertaste and incidence of candidiasis. Do not swallow. 1 each 3 5 12/28/19 25 Active Surgical History Surgery Date Site/Laterality Comments OTHER SURGICAL HISTORY 2010 PROCEDURE: ND EXC B9 LESION MRGN XCP SK TG T/A/L 0.6-1.0 CM COLONOSCOPY June 2016 PROCEDURE: HISTORICAL COLONOSCOPY; COMMENT: Normal Medical History Medical History Date Comments Asthma DX:Asthma Seasonal allergies 02/24/2013 DX:Seasonal a llergies Family History Relation Name Status Comments Brother 1 Alive Brother 2 Alive Brother 3 alcoholic Daughter Alive Father Alive DM II Mother (Age 60s) Asthma, E DIOR, tobacco Sister 1 Alive Migraines Sister 2 Alive In wheelchair Sister 3 Alive Son 1 Alive Son 2 Alive Social History Tobacco Use Types Packs/Day Years Used Date Smoking Tobacco: Never Smokeless Tobacco: Never Alcohol Use Standard Drinks/Week Comments Yes 0 (1 standard drink = 0.6 oz pur e alcohol) Comments Unknown Sex and Gender Information Value Date Recorded Sex Assigned at Female 06/20/2024 9:55 AM EST Legal Sex Female 11:06 PM EST Gender Identity Female 06/20/2024 9:55 AM EST Sexual Orientation Straight 06/20/2024 9: 55 AM EST Obstetrics History Plan of Treatment Upcoming Encounters Date Type Department Care Team ([facility] st Contact Info) Description 01/02/2025 10:00 AM EDT Office Visit Pulmonolgy - [place] [address] [facility] [address] [place] [phone] Chirag Fenton MD [address] [facility] [address] [place] [address] Health Maintenance Due Date Last Done Comments Breast Cancer Screening 1966 Hepatitis B Vaccines (1 of 3 - 19+ 3-dose series) 1985 Cervical Cancer Screening: Pap Smear 1987 DTaP,Tdap,and Td Vaccines (2 - Td or Tdap) 02/24/2023 02/24/2013 Colorectal Cancer Screening: Colonoscopy 05/19/2023 Depression Screening 05/19/2023 HIV Screening 05/19/2023 Hepatitis C Screening 05/19/2023 Social Influencers of Health Screening 05/19/2023 Influenza Vaccine (#1) 2024 , 02/26/2022, 03/04/2021, Additional history exists Pneumococcal Vaccine: 50+ Years Completed 09/24/2022, 06/02/2016 COVID-19 Vaccine Completed 12/27/2023, 01/2022, 03/08/2021, Additional history exists Zoster Vaccines Completed 04/17/2024, 01/26/2024 HIB Vaccines Aged Out No longer eligi [...] on patient's age to complete this topic MMR Vaccines Aged Out No longer eligi ble based on patient's age to complete this topic Meningococcal ACWY Vaccine Aged Out N o longer eligible based on patient's age to complete this topic Meningococcal B Vaccine Aged Out No l onger eligible based on patient's age to complete this topic RSV Immunization Patients Under 20 months Aged Out No longer eligible based on patient's age to complete this topic Varicella Vaccines Aged Out No longer eligible based on patient's age to complete this topic Insurance MEDICAID - [place] Care Teams Bisque Finisher Relationship Specialty Start Date End Date Ligia Pringle MD [address] [place] [address] PCP - General Internal Medicine 09/28/24
== END 2024-10-30 16:22 | disposition home or self-care (01) ==
LOC: HO.HSMS 14:42
PROVIDERS: PCP Nurse Practitioner Women's Health; Visit Provider Nurse Practitioner Family
DX: G43.709 Chronic migraine without aura, not intractable, without status migrainosus (principal); R53.83 Other fatigue
CPT/HCPCS: 99204

== ENCOUNTER 2025-02-06 09:01 | Outpatient (AMB) | payer OTHER, MEDICAID, SELFPAY ==
--- NOTE | 2025-02-06 08:41 | A.OFFVIS_ITS ---
Intake Visit Reasons: 3 mo follolw up Intake Note: Patient presents to the office today as a new patient visit for migraines. Pan Helper Required: No Allergies shellfish derived Allergy (Severe, Verified 10/30/24 14:58) Anaphylaxis Medication List - Last Reconciled 02/06/25 by BHARATI Cadet albuterol sulfate 90 mcg/actuation inhalation dupilumab (Dupixent) mg subcut escitalopram oxalate 5 mg PO DAILY estradiol-norethindrone acet 1-0.5 mg 1 tab PO DAILY gabapentin mg PO galcanezumab-gnlm (Emgality Pen) 240 mg (2 mL) subcut ONCE 30 days meloxicam 7.5 mg PO DAILY PRN nortriptyline mg PO ondansetron HCl 8 mg PO BID riboflavin (vitamin B2) 400 mg PO DAILY 30 days rimegepant (Nurtec ODT) 75 mg PO DAILY PRN 30 days MDD 1 tab HPI Comments Details: 02/06/2025, HPI: She is currently experiencing 3-4 migraine attacks per week. She started Qulipta 60mg daily. She states it was helpful for the headaches, however she stopped it as it caused significant nausea and GI upset. Also, after initially covering the Qulipta, her insurance denied it. Thus, the request for Qulipta was changed to Emgality. The Emgality request has just received Prior authorization approval, and thus she has not received or started it yet. She is using Nurtec as needed with effect. She often feels dizzy and tired and poorly focused. She states she had previously requested labs done through [facility], however we do not have these results yet. She previously did PT with/ Yamila Sharma at [facility]- but it is a bit better. She wonders if she could have POTs and try Adderall. She denies postural tachycardia symptoms. She has not tolerated using a mouthguard for her snoring. Sleeps with her head elevated. 10/30/2024, initial HPI: The patient is a 59-year-old female presenting with migraines. Patient was previously followed by Dr Hinojosa, in upon his long term she was seen once at [facility], however this was not a good fit for her.? And thus, patient was referred here for further evaluation and management The patient reports the onset of migraines in early 2019, coinciding with the start of COVID-19. She did not have a history of similar headaches prior to this period, although migraines do run in her family, with her sister having a history of migraines since adolescence. The patient describes the migraines as multifaceted headache episodes occurring four to five days a week, primarily featuring a sensation of pressure in her head, often associated with dizziness or vertigo. These episodes of vertigo began after an illness that was diagnosed as the flu but coincided with the COVID-19 pandemic. The migraines were initially preceded by a bout of vertigo significant enough to impair her daily functioning. The vertigo was associated with a sensation of being off balance, as if on a boat, although she notes it has improved over time but persists intermittently. Vestibular physical therapies w/ PT Yamila lopez [facility] and medications such as meclizine were attempted for vertigo, with limited success. She has not seen improvement in her migraines with current treatment regimens. Migraines manifest with head pain, characterized by a swelling sensation and pressure often upon waking, which may subside throughout the day. The patient notes associated symptoms include smell sensitivity, occasional light sensitivity, nausea, and blurred vision during headache attacks. She avoids laying down as she feels exacerbates her symptoms and expresses a preference for remaining active during the less severe episodes.? Patient does note that the nortriptyline 50 mg daily at bedtime, helps her his her attention and focus- as she states helps her to be able to read longer without becoming distracted and developing a headache. Sleep apnea and fatigue has been noted, and a mandibular device has been used unsuccessfully for management due to discomfort, while a CPAP machine was not tolerated. Results - MRI brain w/wo: No retrocochlear abnormality. Small foci of T2 prolongation in the supratentorial white matter - Home sleep study: Sleep apnea w/ AHI 8/hr, present but below threshold for surgical intervention such as Inspire - Allergy testing: Indicated multiple allergies Review of Systems - Neurologic: Reports head pressure, dizziness, smell sensitivity, blurred vision, nausea, numbness, tingling. - Ophthalmologic: Denies visual loss. - Musculoskeletal: Reports generalized stiffness, specific right knee pain and swelling. - Respiratory: Asthma improved with Dupixent. - Dermatologic: Eczema managed with Dupixent. - Cardiovascular: Reports prior high blood pressure- improved w/ diet. - Psychiatric: Reports anxiety related to symptomology. Review of pertinent positive and negative past medical history: History of neurological disorders: Denies History of ear Nose and Throat disorders: Denies History of TMJ disorders: Denies History of musculoskeletal disorders: Denies History of musculoskeletal injuries: Denies History of concussion: Denies History of head injury: Denies History of coma: Denies History of mood disorder: Denies History of respiratory disorders: Asthma History of dermatological disorder: Eczema- improved on Dupixent History of sleep apnea: Mild ALIYA with AHI 8/hr.? Did not tolerate PAP therapy.? Have mandibular device, which she does not tolerate well.? Sleeps with head elevated History of cardiovascular disease: hyperlipidemia (previously resolved) History of hematological or coagulation disorders: Denies History of cancer: Denies History of anemia: History of anemia in childhood History of metabolic or endocrine disorders: Denies History of seizure: Denies History of syncope: Denies History of genitourinary disorders: Denies History of kidney stones: Denies History of gastrointestinal disorders: Constipation History of constipation: Yes History of gynecological disorders: Menopause Reproductive health status: Desire for family planning: Denies Current use of control: None Menstrual cycle is: Postmenopausal Surgical History: - NONE Family History - Sister with migraine - Family history of stroke-on father's side. - No known familial history of cancer Headache questionnaire: Onset of initial headache symptoms: 2020 Initial precipitating cause of this headache: Possibly related to menopause or COVID Previous workup for this headache: MRI, vestibular therapy Types of headache disorders: Migraine Typical headache characteristics of this headache: Prodrome symptoms: Denies Aura: Denies Headache pain intensity: Moderate to severe Location, quality, characteristics of this headache: All over, pressure-like Associated migraine symptoms: Smell sensitivity, nausea, Not right and space dizziness, blurry vision Headache postdrome: Denies Headache aggravating factors: Stress, weather, altitude, travel, sleep Headache triggers: Stress, weather, altitude, travel, sleep Time of day this headache usually occurs: Morning Headache frequency:? Daily, but more bothersome 4 days a week Headcahe duration: 4-6 hours or all day Impact of this headache? on patient's quality of life: Severe Current acute medication? used for this headache: Nurtec Current preventative medication used for this headache: Nortriptyline, Gabapentin Current non-pharmacological interventions? for this headache: Cold caps, pressure application by Lifestyle considerations: Sleep routine: Usual bedtime: 8pm Usual? wake-up time: 7:30 am Sleep difficulties: Yes, interrupted sleep Snoring: Yes Apneas: Yes Gasping arousals: Denies Excessive daytime sleepiness: Yes Fatigue: Yes Restless sleep: Yes Nocturnal leg cramps: Yes, sometimes Restless leg syndrome: Denies Bruxism: Denies Nutritional intake: Quantity of fluid intake per day: approx 64oz, but drinks water, coconut water, and seltzer Quality of usual diet: Healthy Caffeine use: One cup of coffee per day Alcohol use: Occasionally drinks wine Marijuana use: Denies Tobacco use: Denies Other illicit substance use: Denies Fitness routine: Frequency of physical exercise: Twice a week Type physical exercise: Walking, swimming, aerobic classes Employment status: Current employment or occupation: None Shift work: None PFSH Medical History (Updated 10/30/24 @ 17:37 by BHARATI Cadet) Anemia Vertigo Seasonal allergies Right shoulder pain ALIYA (obstructive sleep apnea) Migraine headache Menopausal symptoms HTN (hypertension) Genitourinary syndrome of menopause Eczema Asthma Anxiety and depression Surgical History (Updated 10/30/24 @ 14:53 by Rowena Girard CMA) H/O colonoscopy Family History (Updated 10/30/24 @ 15:02 by Rowena Girard CMA) Mother Stroke Dementia Father Diabetes Social History (Updated 10/30/24 @ 15:03 by Rowena Girard CMA) Household Members: Spouse Housing: House Alcohol intake: current Alcohol intake frequency: a few times a week Alcohol type: wine Patient Tobacco Use Status: Never used Tobacco e-Cigarette/Vaping Use: Never Used Physical Exam Const Orientation/consciousness: patient oriented x3 Resp Effort & Inspection: normal respiratory effort and able to speak in complete sentences Neuro General: patient oriented x3 Cognition (Neuro): normal cognition Psych Appearance: grossly normal Mental Status: mental status grossly normal Speech and movement: Normal speech and movement present Affect: normal affect Attitude: cooperative Thought process: Normal thought process present Telehealth Telehealth Telehealth Platform: [employer] Location of provider rendering services: practice address Location of patient: address on file Patient Identification confirmed using: Name, : Yes Telehealth method: video Patient verbally consented to treatment: Yes Patient verbally consented to billing insurance company: Yes Patient informed of any privacy concerns related to visit: Yes Minutes spent on Phone/Video with Pt.: 23 Assessment & Plan Assessment & Plan (1) Chronic migraine without aura: Code(s): G43.709 - Chronic migraine without aura, not intractable, without status migrainosus Category: Medical Qualifiers: Intractability: not intractable Status migrainosus presence: without status migrainosus Qualified Code(s): G43.709 - Chronic migraine without aura, not intractable, without status migrainosus (2) Fatigue: Code(s): R53.83 - Other fatigue Category: Medical Qualifiers: Fatigue type: unspecified Qualified Code(s): R53.83 - Other fatigue Plan For overall headache management: * Optimize good self-care, including but not limited to maintaining a healthy diet, adequate fluid intake, adequate sleep, and engaging in regular physical activity. * Patient encouraged to trial gentle yoga or water based exercise classes. * Track headaches, especially after any treatment regimen changes. Migraine [employer] is one of many headache tracking apps. * Information previously shared on non-pharmacological interventions which may help to alleviate headache attack burden. * For light sensitivity: Patient may benefit from trying blue light filtering glasses, green glasses, green light therapy. * For sound sensitivity: Patent may benefit from trying noise cancellation ear plugs. * For dizziness, fatigue, restlessness, and poor focus in the setting of mild ALIYA: * Advised her symptoms are not consistent with POTS, as tachycardia is a homework symptom of this condition * We will request results of previously ordered fasting labs. * Sleep with head elevated * She would not be a candidate for inspire therapy based on her previous home sleep study results showing AHI 8 per hour. * Follow-up with ENT/Dr. Damian for allergy treatments * Future considerations: In-lab PSG * Future considerations: Revisiting vestibular PT. For acute headache treatment: Discussed importance of taking acute medications at the first sign of headache, however stressed importance of avoiding acute medication overuse (especially with combined headache medications). Continue Rimegepant ODT (Nurtec ODT) 75mg, 1 tab at onset of headache. Max of 1 tabs (75mg) per 24 hours. * May adjunct with OTC Tylenol 650mg q 4 hours, Ibuprofen 600mg q 6 hours, or Naproxen 440mg q 12 hrs prn. Do not take ibuprofen or naproxen on the same day that she uses meloxicam for right knee pain. * Potential adverse effects, include but are not limited to fatigue, nausea, dry mouth, constipation. Previous acute migraine medication trials: Sumatriptan-ineffective. Acute migraine medication contraindications: None at this time For headache prevention medication: Preventative medications should be taken routinely as prescribed for best effect, it may take several weeks for full effect to take effect. * Continue Riboflavin 400mg daily in a.m. * Continue Magnesium citrate 500 mg daily * Discontinue Atogepant (Qulipta) 60mg daily at bedtime * Continue nortriptyline 50 mg daily at bedtime. * Start Emgality 120mg/ml auto-injection: * Loading dose: 240mg (2 120mg/ml auto-injections) via subcutaneous injection in 2 different sites). * Then 30 days after loading dose, start Maintenance dose: 120mg (120mg/ml autoinjector) subcutaneous injection every month. * Important considerations for Emgality: * Loading dose order sent to pharmacy today, advised to notify us if she has any difficulty filling this at her local pharmacy. If this occurs, she may need to receive an Emgality loading dose sample * Potential side effects include allergic reaction and injection site reactions. * Emgality injection training educational video is available to view on [employer] * Store Emgality in the refrigerator in it's original packaging in order to protect from light. * Remove Emgality at least 1 hour prior to taking the injection. * Emgality can be left out of the fridge for?up to 7 days at a temperature not above 86?F. If either of these conditions are exceeded, then Emgality must be thrown away. * Once Emgality has been stored out of refrigeration, do not place it back in the refrigerator. * Continue gabapentin 300 mg at bedtime-uses for skin sensitivity/allodynia. Previous migraine prevention medication trials: Amitriptyline-ineffective, Topiramate-cause mood changes, and Ajovy-ineffective after 3 months. Qulipta- helpful, but caused nausea and GI upset Migraine prevention medication contraindications: Beta-blockers due to symptomatic asthma diagnosis. Future considerations: Botox for chronic migraine. Will follow-up upon review of above and patient to follow-up in clinic in 3-6 months or sooner prn. Medications: Changed From nortriptyline PO To nortriptyline 50 mg (2 x 25 mg) PO BEDTIME 180 caps 1RF 90 days From gabapentin PO To gabapentin 300 mg PO BEDTIME 90 caps 1RF 90 days Refilled galcanezumab-gnlm (Emgality Pen) Loading dose: 120 mg subcu injection x2 in alternate sites (total 240 mg). To be followed by maintenance dose of 120 mg subcu q.month. 240 mg (2 mL) subcut ONCE 2 mL 0RF 30 days Coding Level of Care Code Tele Est Pt Level 4 (55814) Diagnoses Chronic migraine without aura without status migrainosus, not intractable G43.709 Intractability: not intractable Status migrainosus presence: without status migrainosus Fatigue, unspecified type R53.83 Fatigue type: unspecified
--- OUTSIDE RECORDS SUMMARY | 2025-02-06 09:40 | XMS_ITS | Data Portability ---
Author Organization [place] - [facility], Allergy Address [address] [address] Care Team Providers Care Inspector Materials And Processes Name Role Phone UMANG ALAN Primary Care Provider Assessment Encounter Date Assessment Date Assessment LastModified by Organization Details LastModified Time 11/30/2024 11/30/2024 Visit With: Penny Harvey Use of Antihistamine s: No If yes: Vial Test Change in medications: No If yes Increase in asthma symptoms If yes, inhaler use: Reaction to last injections: No If yes: Allergy Symptoms: Other: Missed: Dose Aware of Vial Test Aware: Notes: [email or web address] Not available 11/30/2024 13:57:36 12/05/2024 12/05/2024 Visit With: Penny Harvey Use of Antihistamine s: Yes If yes: Vial Test Change in medications: No If yes Increase in asthma symptoms If yes, inhaler use: Reaction to last injections: No If yes: Allergy Symptoms: Other: Missed: Dose Aware of Vial Test Aware: Notes: [email or web address] Not available 12/05/2024 11:55:53 12/26/2024 12/26/2024 Visit With: Gi Gay RN Use of Antihistamine s: Yes If yes: Vial Test Change in medications: No If yes Increase in asthma symptoms No If yes, inhaler use: Reaction to last injections: No If yes: Allergy Symptoms: Other: Missed: Dose Aware of Vial Test Aware: Notes: [email or web address] Not available 12/26/2024 10:46:19 01/12/2025 01/12/2025 Visit With: Penny Harvey Use of Antihistamine s: Yes If yes: Vial Test Change in medications: No If yes Increase in asthma symptoms No If yes, inhaler use: Reaction to last injections: No If yes: Allergy Symptoms: Other: Missed: Dose Aware of Vial Test Aware: Notes: [email or web address] Not available 01/12/2025 14:44:14 01/25/2025 01/25/2025 Visit With: CLAUDIA Garcia Use of Antihistamine s: Yes If yes: Vial Test Change in medications: No If yes Increase in asthma symptoms If yes, inhaler use: Reaction to last injections: No If yes: Allergy Symptoms: Other: Missed: Dose Aware of Vial Test Yes Aware: Notes: [email or web address] Not available 01/25/2025 13:56:57 Plan of Treatment Reminders Order Date Submit Date Provider Last Modified By Organization Details Last Modified Time Details Appointments - Allergy f-up 6mon 2025 10:30A M RAJI MCINTOSH Not available Not available Not available Lab None recorded . Referral None recorded . Procedures None recorded . Surgeries None recorded . Imaging None recorded . Medication Orders None recorded . Patient TargetsNo targets recorded. Patient InstructionsNo instructions recorded. Reason for Referral None Reported. Problems Name Problem SNOMED Code Status Onset Date Resolution Date Notes Provider Name and Address Organization Details Recorded Time Benign paroxysm al position al vertigo 591815111 Completed 201911/19/2023 Benign paroxysm al vertigo, left ear; Note: Changed from H81.10 to H81.12 ( 0 10:18 AM) , Date Diagnose d: 08/21/2019 10:27 AM (H81.10) Not Available [facility] 4 02:45:19 Migraine 33774464 Active 2019 Other migraine , not intracta ble, without status migraino nash; Note: Date Diagnose d: 08/21/2019 10:27 AM (G43.809 ) Not Available [facility] 4 02:45:25 Vertigo of central origin 01631875 Active 2019 Vertigo of central origin; Note: Date Diagnose d: 08/21/2019 10:27 AM (H81.4) Not Available [facility] 4 02:45:21 Sensorin eural hearing loss 88542958 Active 2019 Sensorin eural hearing loss, unilater al, right ear, with unrestri cted hearing on the contrala teral side; Note: Date Diagnose d: 10/26/2019 10:15 AM (H90.41) Not Available [facility] 4 02:45:24 Obstruct moe sleep apnea syndrome 74283611 Active 2020 Obstruct moe sleep apnea (adult) (pediatr ic); Note: Date Diagnose d: 1 10:15 AM (G47.33) Not Available [facility] 4 02:45:20 Refracto ry migraine 544421270 Active 2021 Other migraine , intracta ble, without status migraino nash; Note: Date Diagnose d: 2 9:02 AM (G43.819 ) Not Available [facility] 4 02:45:23 Posterio r rhinorrh ea 47043212 Active 2022 Postnasa l drip; Note: Date Diagnose d: 3 8:57 AM (R09.82) Not Available [facility] 4 02:45:20 Allergic rhinitis 18403568 Active 2023 Allergic rhinitis : Due to other allergen ; Note: Date Diagnose d: 4 11:28 AM (477.8) Note: Date Diagnose d: 4 11:28 AM (477.8) Allerg ic rhinitis : Due to other allergen ; Note: Date Diagnose d: 04/23/2023 11:36 AM (477.8) Note: Date Diagnose d: 04/23/2023 11:36 AM (477.8) ; Start Date : 04/23/19 24 Aller gic rhinitis : Due to other allergen ; Note: Date Diagnose d: 04/14/20 23 11:07 AM (477.8) Note: Date Diagnose d: 04/14/20 23 11:07 AM (477.8) ; Start Date : 04/14/20 23 Aller gic rhinitis : Due to other allergen ; Note: Date Diagnose d: 12/20/20 23 10:34 AM (477.8) Note: Date Diagnose d: 04/07/20 10:34 AM (477.8) ; Start Date : 04/07/20 Aller gic rhinitis : Due to other allergen ; Note: Date Diagnose d: 10:34 AM (477.8) Note: Date Diagnose d: 10:34 AM (477.8) ; Start Date : 03/26/20 Aller gic rhinitis : Due to other allergen ; Note: Date Diagnose d: 03/16/20 1:53 PM (477.8) Note: Date Diagnose d: 03/16/20 1:53 PM (477.8) ; Start Date : 03/16/20 Aller gic rhinitis : Due to other allergen ; Note: Date Diagnose d: 12:06 PM (477.8) Note: Date Diagnose d: 12:06 PM (477.8) ; Start Date : 02/25/20 Aller gic rhinitis : Due to other allergen ; Note: Date Diagnose d: 11:24 AM (477.8) Note: Date Diagnose d: 11:24 AM (477.8) ; Start Date : 02/20/20 Aller gic rhinitis : Due to other allergen ; Note: Date Diagnose d: 02/13/20 11:54 AM (477.8) Note: Date Diagnose d: 02/13/20 11:54 AM (477.8) ; Start Date : 02/13/20 Aller gic rhinitis : Due to other allergen ; Note: Date Diagnose d: 02/03/20 11:11 AM (477.8) Note: Date Diagnose d: 02/03/20 11:11 AM (477.8) ; Start Date : 02/03/20 Aller gic rhinitis : Due to other allergen ; Note: Date Diagnose d: 11:56 AM (477.8) Note: Date Diagnose d: 11:56 AM (477.8) ; Start Date : 01/21/20 Aller gic rhinitis : Due to other allergen ; Note: Date Diagnose d: 10:43 AM (477.8) Note: Date Diagnose d: 10:43 AM (477.8) ; Start Date : 01/13/20 Aller gic rhinitis : Due to other allergen ; Note: Date Diagnose d: 1:57 PM (477.8) Note: Date Diagnose d: 1:57 PM (477.8) ; Start Date : 12/31/19 Aller gic rhinitis : Due to other allergen ; Note: Date Diagnose d: 12/24/2022 10:20 AM (477.8) Note: Date Diagnose d: 12/24/2022 10:20 AM (477.8) ; Start Date : 12/25/19 Aller gic rhinitis : Due to other allergen ; Note: Date Diagnose d: 10:47 AM (477.8) Note: Date Diagnose d: 10:47 AM (477.8) ; Start Date : 12/10/19 Aller gic rhinitis : Due to other allergen ; Note: Date Diagnose d: 10:45 AM (477.8) Note: Date Diagnose d: 10:45 AM (477.8) ; Start Date : 12/05/19 Aller gic rhinitis : Due to other allergen ; Note: Date Diagnose d: 11/24/2022 11:33 AM (477.8) Note: Date Diagnose d: 11/24/2022 11:33 AM (477.8) ; Start Date : 11/25/19 Aller gic rhinitis : Due to other allergen ; Note: Date Diagnose d: 11/18/2022 12:18 PM (477.8) Note: Date Diagnose d: 11/18/2022 12:18 PM (477.8) ; Start Date : 11/19/19 Aller gic rhinitis : Due to other allergen ; Note: Date Diagnose d: 10:12 AM (477.8) Note: Date Diagnose d: 10:12 AM (477.8) ; Start Date : 07/26/20 23 Aller gic rhinitis : Due to other allergen ; Note: Date Diagnose d: 3 10:53 AM (477.8) Note: Date Diagnose d: 3 10:53 AM (477.8) ; Start Date : 11/04/19 23 Aller gic rhinitis : Due to other allergen ; Note: Date Diagnose d: 10/22/2022 12:58 PM (477.8) Note: Date Diagnose d: 10/22/2022 12:58 PM (477.8) ; Start Date : 10/23/19 23 Aller gic rhinitis : Due to other allergen ; Note: Date Diagnose d: 3 11:05 AM (477.8) Note: Date Diagnose d: 3 11:05 AM (477.8) ; Start Date : 10/16/19 Aller gic rhinitis : Due to other allergen ; Note: Date Diagnose d: 3 11:56 AM (477.8) Note: Date Diagnose d: 3 11:56 AM (477.8) ; Start Date : 10/08/19 23 Aller gic rhinitis : Due to other allergen ; Note: Date Diagnose d: 08/18 Not Available [facility] 4 01:08:05 Perennia l allergic rhinitis 754668703 Active 2023 [facility], [facility] 100 [facility],[address], [address] , [facility] 13:56:25 Problem Notes None recorded. Procedures Surgical History Date Name Laterality Status Provider Name and Address Organization Details Recorded Time 01/26/20 25 Allergy Immunotherapy Injections completed UZMA CALLAHAN [facility] 100 [facility],[address], [address], [facility] - [facility] 01/25/2025 13:56:42 01/13/20 25 Allergy Immunotherapy Injections completed Mukesh Ribeiro 100 [facility],[address], [address], [facility] - [facility] 01/12/2025 14:44:03 12/27/19 25 Allergy Immunotherapy Injections completed GI GAY RN [address], [place], [address], [place] [facility] 12/26/2024 10:46:08 12/06/19 25 Allergy Immunotherapy Injections completed LELAND MONTEROA [address], [place], [address], [place] [facility] 12/05/2024 11:55:48 12/01/19 25 Allergy Immunotherapy Injections completed UZMA MULLIGAN, RMA [address], [place], [address], [place] [facility] 11/30/2024 13:57:28 11/15/19 25 Allergy Immunotherapy Injections completed UZMA MULLIGAN, RMA [address], [place], [address], [place] [facility] 11/14/2024 13:22:15 11/02/19 25 Allergy Immunotherapy Injections completed CLAUDIA MONTERO [address], [place], [address], [place] [facility] 11/01/2024 12:07:35 10/18/19 25 Allergy Immunotherapy Injections completed LELAND MONTEROA [address], [place], [address], [place] [facility] 10/17/2024 13:54:19 09/21/19 25 Allergy Immunotherapy Injections completed UZMA MULLIGAN RMA [address], [place], [address], [place] [facility] 09/20/2024 10:14:21 09/08/19 25 Allergy Immunotherapy Injections completed UZMA LONDONC, RMA [address], [place], [address], [place] [facility] 09/07/2024 15:16:20 08/26/19 25 Allergy Immunotherapy Injections completed UZMA CALLAHANC, RMA [address], [place], [address], [place] [facility] 08/25/2024 13:34:36 08/10/19 25 Allergy Immunotherapy Injections completed CLAUDIA MONTERO [address], [place], [address], [place] [facility] 08/09/2024 10:44:25 07/27/19 25 Allergy Immunotherapy Injections completed GI GAY RN [address], [place], [address], [place] [facility] 07/26/2024 10:36:28 07/12/19 25 Allergy Immunotherapy Injections completed GI GAY RN [address], [place], [address], [place] [facility] 07/11/2024 13:09:12 06/29/19 25 Allergy Immunotherapy Injections completed CLAUDIA MONTERO [address], [place], [address], [place] [facility] 06/28/2024 11:32:37 06/14/19 25 Allergy Immunotherapy Injections completed CLAUDIA MONTERO [address] [facility], [place], [address], [place] [facility] 06/14/2024 13:42:02 06/07/19 25 Allergy Immunotherapy Injections completed GI GAY RN [address] [place] [address], [address], [place] [facility] 06/07/2024 14:22:54 05/30/19 25 Allergy Immunotherapy Injections completed CLAUDIA GARCIA [address], [place], [address], [place] [facility] 05/30/2024 11:21:34 05/19/19 25 Allergy Immunotherapy Injections completed CLAUDIA MONTERO [address], [place], [address], [place] [facility] 05/19/2024 13:56:22 04/20/19 25 Allergy Immunotherapy Injections completed CLAUDIA GARCIA [address], [place], [address], [place] [facility] 04/20/2024 12:09:29 04/11/20 24 Allergy Immunotherapy Injections completed GI GAY RN [address], [place], [address], [place] [facility] 04/11/2024 12:21:15 03/29/20 24 Allergy Immunotherapy Injections completed UZMA MULLIGAN, RMA [address], [place], [address], [place] [facility] 03/29/2024 13:58:29 03/22/20 24 Allergy Immunotherapy Injections completed GI GAY RN [address], [place], [address], [place] [facility] 03/22/2024 10:14:28 03/13/20 24 Allergy Immunotherapy Injections completed UZMA MULLIGAN, RMA [address], [place], [address], [place] [facility] 03/13/2024 11:24:47 03/08/20 24 Allergy Immunotherapy Injections completed UZMA MULLIGAN, RMA [address], [place], [address], [place] [facility] 03/08/2024 14:16:21 03/03/20 24 Allergy Immunotherapy Injections completed UZMA MULLIGAN, RMA [address], [place], [address], [place] [facility] 03/03/2024 11:22:26 02/08/20 24 Allergy Immunotherapy Injections completed UZMA MULLIGAN RMA [address], [place], [address], [place] [facility] 02/08/2024 14:47:59 02/03/20 24 Allergy Immunotherapy Injections completed UZMA MULLIGAN, RMA [address], [place], [address], [place] [facility] 02/03/2024 11:36:55 01/28/20 Allergy Immunotherapy Injections completed PENNY HARVEY RMA [address], [place], [address], [place] [facility] 01/28/2024 11:56:44 01/20/20 24 Allergy Immunotherapy Injections completed UZMA ISAAK, RMA [address], [place], [address], [place] [facility] 01/20/2024 10:46:20 01/11/20 24 Allergy Immunotherapy Injections completed UZMA HYLTONBERTRAMC, RMA [address], [place], [address], [place] [facility] 01/11/2024 11:01:34 01/05/20 24 Allergy Immunotherapy Injections completed PENNY HARVEY RMA [address], [place], [address], [place] [facility] 01/05/2024 13:22:39 12/30/19 24 Allergy Immunotherapy Injections completed UZMA MULLIGAN, RMA [address], [place], [address], [place] [facility] 12/30/2023 13:18:55 12/22/19 24 Allergy Immunotherapy Injections completed UZMA MULLIGAN, RMA [address], [place], [address], [place] [facility] 12/22/2023 11:34:42 12/14/19 24 Allergy Immunotherapy Injections completed PENNY HARVEY RMA [address], [place], [address], [place] [facility] 12/14/2023 13:40:10 12/09/19 24 Allergy Immunotherapy Injections completed UZMA MULLIGAN, RMA [address], [place], [address], [place] [facility] 12/09/2023 12:16:22 12/03/19 24 Allergy Immunotherapy Injections completed GI GAY RN [address], [place], [address], [place] [facility] 12/03/2023 11:31:38 11/24/19 24 Allergy Immunotherapy Injections completed GI GAY RN [address], [place], [address], [place] [facility] 11/24/2023 12:06:42 11/19/19 24 Allergy Immunotherapy Injections completed GI GAY RN [address], [place], [address], [place] [facility] 11/19/2023 11:52:31 11/11/19 24 Allergy Immunotherapy Injections completed GI GAY RN [address], [place], [address], [place] [facility] 11/11/2023 10:32:22 11/03/19 24 Allergy Immunotherapy Injections completed UZMA MULLIGAN RMA [address], [place], [address], [place] [facility] 11/03/2023 14:05:48 10/27/19 24 Allergy Immunotherapy Injections completed UZMA MULLIGAN RMA [address], [place], [address], [place] [facility] 10/27/2023 15:51:11 10/19/19 24 Allergy Immunotherapy Injections completed GI GAY RN [address] [facility], [place], [address], [place] [facility] 10/19/2023 11:29:47 09/28/19 24 Allergy Immunotherapy Injections completed UZMA MULLIGAN RMA [address], [place], [address], [place] [facility] 09/28/2023 10:25:51 09/22/19 24 Allergy Immunotherapy Injections completed UZMA MULLIGAN RMA [address], [place], [address], [place] [facility] 09/22/2023 11:17:02 09/15/19 24 Allergy Immunotherapy Injections completed UZMA MULLIGAN RMA [address], [place], [address], [place] [facility] 09/15/2023 10:37:02 09/07/19 24 Allergy Immunotherapy Injections completed CLAUDIA MONTERO [address], [place], [address], [place] [facility] 09/07/2023 12:11:11 09/02/19 24 Allergy Immunotherapy Injections completed PENNY HARVEY, [facility] 100 [facility],[place] [address], [place], [address], [place] [facility] 09/02/2023 14:29:23 Imaging Results None recorded. Procedure Notes None recorded. Medical Equipment None Reported. Medications Name Sig Start Date Stop Date Status Note LastModified by Organization Details LastModified Time cetirizin e 5 mg-pseudo ephedrine ER 120 mg tablet,ex tended release,1 2hr 09/20 completed Medicati on ID: [id number] D uration Value: 30 Brand Name: cetirizi ne-pseud oephedri ne Send Method: E-Prescr ibed Sub s Allowed: subs OK Speci al Instruct ion: TAKE 1 TABLET BY MOUTH DAILY NEEDED FOR ALLERGIE S Medica tionGene ricName: cetirizi ne-pseud oephedri ne Not Available Not Available Not Available Vitamin B-2 100 mg tablet 09/20 completed Medicati on ID: [id number] D uration Value: 90 Brand Name: Vitamin B-2 Send Method: E-Prescr ibed Sub s Allowed: subs OK Speci al Instruct ion: TAKE ONE TABLET BY MOUTH EVERY DAY Medi cationGe nericNam e: Vitamin B-2 Not Available Not Available Not Available venlafaxi ne ER 75 mg capsule,e xtended release 24 hr 03/18 completed Medicati on ID: [id number] D uration Value: 30 Brand Name: venlafax ine Send Method: E-Prescr ibed Sub s Allowed: subs OK Speci al Instruct ion: TAKE 1 CAPSULE BY MOUTH ONCE A DAY WITH FOOD. Me dication GenericN mel: venlafax ine Not Available Not Available Not Available cetirizin e 10 mg tablet TAKE 1 TABLET BY MOUTH EVERY DAY 09/20 completed Not Available Not Available Not Available ibuprofen 800 mg tablet 09/20 completed Medicati on ID: [id number] D uration Value: 30 Brand Name: ibuprofe n Send Method: E-Prescr ibed Sub s Allowed: subs OK Speci al Instruct ion: TAKE 1 TABLET BY MOUTH EVERY 8 HOURS NEEDED FOR PAIN FOR UP TO 30 D AYS Medi cationGe nericNam e: ibuprofe n Not Available Not Available Not Available valacyclo vir 1 gram tablet TAKE 1 TABLET BY MOUTH EVERY 12 HOURS FOR 7 DAYS 09/20 completed Not Available Not Available Not Available ondansetr on HCl 8 mg tablet TAKE ONE TABLET BY MOUTH TWICE A DAY active Not Available Not Available No t Available meloxicam 15 mg tablet TAKE 1 TABLET BY MOUTH EVERY DAY WITH FOOD active Not Available Not Available No t Available sumatript an 50 mg tablet 09/20 completed Medicati on ID: [id number] D uration Value: 30 Brand Name: sumatrip delong succinat e Send Method: E-Prescr ibed Sub s Allowed: subs JUDE Gould al Instruct ion: TAKE 1-2 TABLETS BY MOUTH AT ONSET OF MIGRAINE . MAY REPEAT DOSE ONCE A FTER 2 HOURS IF NEEDED. NO MORE THAN 4 TABLETS PER DAY. Med icationG enericNa me: sumatrip delong succinat e Not Available Not Available Not Available meclizine 12.5 mg tablet 1 tablet by mouth 09/20 completed Medicati on ID: [id number] P rescribe d By Name: Ahmet Garner nd Name: meclizin e Send Method: E-Prescr ibed Sub s Allowed: subs JUDE roman Instruct ion: make take up to 3 times a day as needed M edicatio nGeneric Name: meclizin e Not Available Not Available Not Available estradiol -norethin drone acet 1 mg-0.5 mg tablet TAKE ONE TABLET BY MOUTH EVERY DAY active Not Available Not Available No t Available minoxidil 2.5 mg tablet TAKE 1/2 TABLET BY MOUTH IN THE MORNING active Not Available Not Available No t Available nortripty line 25 mg capsule TAKE TWO CAPSULES BY MOUTH EVERY DAY AT BEDTIME ; MAY INCREASE BY 1/NIGHT EVERY 2 WEEKS, UP TO 5 ONCE DAILY AT BEDTIME active Not Available Not Available No t Available meclizine 25 mg tablet 12/20 completed Medicati on ID: [id number] D uration Value: 15 Reason: () Brand Name: meclizin e Send Method: E-Prescr ibed Sub s Allowed: subs OK Speci al Instruct ion: TAKE ONE TABLET BY MOUTH THREE TIMES A DAY NEEDED FOR DIZZINES S Medica tionGene ricName: meclizin e Not Available Not Available Not Available nortripty line 10 mg capsule 2 capsule by mouth 09/20 completed Medicati on ID: [id number] P rescribe d By Name: Ahmet Garner nd Name: nordev garza Se nd Method: E-Prescr ibed Sub s Allowed: subs OK Medic ationGen ericName : nortript yline Not Available Not Available Not Available Refresh Classic (PF) 1.4 %-0.6 % eye drops in a dropperet te 09/20 completed Medicati on ID: [id number] D uration Value: 30 Brand Name: Refresh Classic (PF) Sen d Method: E-Prescr ibed Sub s Allowed: subs OK Speci al Instruct ion: INSTILL 1 DROP INTO BOTH EYES TWO TIMES A DAY DIRECTED Medicat ionGener icName: Refresh Classic (PF) Not Available Not Available Not Available betametha sone dipropion ate 0.05 % topical cream PLEASE SEE ATTACHED FOR DETAILED DIRECTIO NS active Not Available Not Available No t Available gabapenti n 300 mg capsule TAKE ONE CAPSULE BY MOUTH EVERY DAY AT BEDTIME ; INCREASE BY TAKE ONE CAPSULE BY MOUTH EVERY OTHER DAY ; UP TO 2 THREE TIMES A DAY active Not Available Not Available No t Available montel[address] st 10 mg tablet 09/20 completed Medicati on ID: [id number] D uration Value: 30 Brand Name: monteluk ast Send Method: E-Prescr ibed Sub s Allowed: subs OK Speci al Instruct ion: TAKE ONE TABLET BY MOUTH EVERY EVENING Medicati onGeneri cName: monteluk ast Not Available Not Available Not Available albuterol sulfate HFA 90 mcg/actua tion aerosol inhaler TAKE 2 PUFFS BY MOUTH EVERY 4 TO 6 HOURS NEEDED active Not Available Not Available No t Available ondansetr on 4 mg disintegr ating tablet DISSOLVE 1 TABLET ON TONGUE EVERY 6 HOURS NEEDED *INS MAX 18 TABS PER 21 DAYS* 09/20 completed Not Available Not Available Not Available bupropion HCl XL 150 mg 24 hr tablet, extended release TAKE 1 TABLET BY MOUTH EVERY 24 HOURS 09/20 completed Not Available Not Available Not Available escitalop dulce 5 mg tablet TAKE ONE TABLET BY MOUTH EVERY DAY active Not Available Not Available No t Available topiramat e 50 mg tablet TAKE 3 TABLETS BY MOUTH DAILY AT BEDTIME 09/20 completed Not Available Not Available Not Available Advair HFA 115 mcg-21 mcg/actua tion aerosol inhaler 09/20 completed Medicati on ID: [id number] B rand Name: Advair HFA Send Method: E-Prescr ibed Sub s Allowed: subs OK Medic ationGen ericName : Advair HFA Not Available Not Available Not Available diclofena c 1 % topical gel APPLY TOPICALL Y FOUR TIMES A DAY NEEDED PAIN active Not Available Not Available No t Available EpiPen 2-Jace 0.3 mg/0.3 mL injection , auto-inje ctor active Not Available Not Available Not Available Wixela Inhub 100 mcg-50 mcg/dose powder for inhalatio n TAKE 1 PUFF BY MOUTH EVERY 12 HOURS IN THE MORNING AND IN THE EVENING active Not Available Not Available No t Available Nurtec ODT 75 mg disintegr ating tablet PLACE 1 TABLET ON TOP OF TONGUE ; ALLOW TO DISSOLVE THEN SWALLOW BY MOUTH ONCE NEEDED FOR MIGRAINE ; MAX 1 DOSE / 24 HOURS active Not Available Not Available No t Available Ajovy 225 mg/1.5 mL subcutane ous auto-inje ctor INJECT 225 MG INTO THE SKIN EVERY 28 DAYS active Not Available Not Available No t Available Dupixent 300 mg/2 mL subcutane ous pen injector active Not Available Not Available Not Available Vitals None Recorded Social History None recorded. Functional Status None recorded. Mental Status None recorded. Family History Nothing Reported. Medical History Condition Response Allergies/Hayfever Y Food Allergy Y Arthritis Y Anxiety Y Headaches Y Migraines Y Depression Y Asthma Y Gynecological HistoryNo gynecological history recorded. Obstetrics History GPAL:G 0 P 0 0 0 0 Past Encounters Encounter ID Performer Location Encounter Start Date Encounter Closed Date Diagnosis/Indication Diagnosis SNOMED-CT Code Diagnosis ICD10 Code Diagnosis IMO Codes Diagnosis Note [id number] UZMA KORZEC, RMA Allergy [address] [address] [place] [address] 09/02/2023 14:24:43 09/03/2023 12:34:06 Perennial allergic rhinitis 914086797 J30.89 [id number] PENNY CANDICE, A Allergy [address] [place] [address],[address] [place] [address] 09/07/2023 11:09:37 09/07/2023 13:03:52 Perennial allergic rhinitis [id number] J30.89 [id number] PENNY HARVEY A Allergy [address] [place] [address],[address] [place] [address] 09/15/2023 09:11:52 09/15/2023 13:12:33 Perennial allergic rhinitis [id number] J30.89 [id number] UZMA LONDON, A Allergy [address] [place] [address], [address] [place] [address] 09/22/2023 10:50:49 09/22/2023 11:19:48 Perennial allergic rhinitis [id number] J30.89 [id number] [facility], [facility] Allergy [address] [place] [address], [address] [place] [address] 09/28/2023 10:17:06 09/28/2023 11:50:53 Perennial allergic rhinitis [id number] J30.89 [id number] GI AGY RN Allergy [address] [place] [address] [address] [place] [address] 10/19/2023 10:39:02 10/19/2023 11:33:13 Perennial allergic rhinitis [id number] J30.89 [id number] UZMA LONDON, A Allergy [address] [place] [address],[address] [place] [address] 10/27/2023 14:42:28 10/27/2023 16:00:20 Perennial allergic rhinitis [id number] J30.89 [id number] UZMA LONDON, RMA Allergy [address] [place] [address],[address] [place] [address] 11/03/2023 13:35:25 11/03/2023 14:06:58 Perennial allergic rhinitis [id number] J30.89 [id number] GI GAY RN Allergy [address] [place] [address], [address] [place] [address] 11/11/2023 10:21:36 11/11/2023 10:47:10 Perennial allergic rhinitis [id number] J30.89 [id number] GI GAY RN Allergy [address] [place] [address],[address] [place] [address] 11/19/2023 10:30:18 11/19/2023 11:52:50 Perennial allergic rhinitis [id number] J30.89 [id number] [facility], [facility] Allergy [address] [place] [address],[address] [place] [address] 11/24/2023 10:40:57 11/24/2023 12:07:07 Perennial allergic rhinitis [id number] J30.89 [id number] GI GAY RN Allergy [address] [place] [address], [address] [place] [address] 12/03/2023 11:16:26 12/03/2023 11:32:30 Perennial allergic rhinitis [id number] J30.89 [id number] PENNY HARVEY [facility] Allergy [address] [place] [address] [address] [place] [address] 12/09/2023 10:19:24 12/09/2023 12:18:14 Perennial allergic rhinitis [id number] J30.89 [id number] PENNY HARVEY [facility] Allergy [address] [place] [address] [address] [place] [address] 12/14/2023 13:39:05 12/14/2023 15:00:57 Perennial allergic rhinitis [id number] J30.89 [id number] [facility] Allergy [address] [place] [address],[address] [place] [address] 12/22/2023 10:55:59 12/22/2023 12:16:14 Perennial allergic rhinitis [id number] J30.89 [id number] [facility]MA [facility], A Allergy [address] [place] [address],[address] [place] [address] 12/30/2023 13:13:15 12/30/2023 14:34:31 Perennial allergic rhinitis [id number] J30.89 [id number] PENNY HARVEY [facility] Allergy [address] [place] [address] [address] [place] [address] 01/05/2024 13:11:24 01/05/2024 14:11:56 Perennial allergic rhinitis [id number] J30.89 [id number] UZMA CALLAHAN, A Allergy 100 [facility],[address] [place] [address] 01/11/2024 10:30:47 01/11/2024 12:26:22 Perennial allergic rhinitis [id number] J30.89 [id number] PENNY HARVEY, [facility] Allergy [address] [place] [address],[address] [place] [address] 01/20/2024 09:52:45 01/20/2024 10:46:48 Perennial allergic rhinitis [id number] J30.89 [id number] PENNY HARVEY, A Allergy [address] [place] [address],[address] [place] [address] 01/28/2024 11:42:19 01/28/2024 11:54:54 Perennial allergic rhinitis [id number] J30.89 [id number] [facility] [address] [place] [address],[address] [place] [address] 02/03/2024 11:08:31 02/03/2024 11:37:29 Perennial allergic rhinitis [id number] J30.89 [id number] UMZA LONDON, A Allergy [address] [place] [address],[address] [place] [address] 02/08/2024 14:26:28 02/08/2024 14:48:48 Perennial allergic rhinitis [id number] J30.89 [id number] [facility] [address] [place] [address],[address] [place] [address] 03/03/2024 11:11:12 03/03/2024 11:23:12 Perennial allergic rhinitis [id number] J30.89 [id number] GI GAY line palletizer [address] [place] [address],[address] [place] [address] 03/08/2024 13:56:30 03/08/2024 14:17:47 Perennial allergic rhinitis [id number] J30.89 [id number] [facility] [place], A Allergy [address] [place] [address],[address] [place] [address] 03/13/2024 11:11:50 03/13/2024 11:26:09 Perennial allergic rhinitis [id number] J30.89 [id number] KOBE MARTINEZ PA-C [facility] [address] [place] [address] 03/22/2024 09:11:39 03/22/2024 09:59:45 Allergic rhinitis [id number] J30.89 [id number] GI GAY RN Allergy [address] [place] [address], [place] [address] 03/22/2024 09:13:14 03/22/2024 10:14:56 Perennial allergic rhinitis [id number] J30.89 [id number] [facility] Allergy [address] [place] [address], [place] [address] 03/29/2024 13:33:59 03/29/2024 13:58:55 Perennial allergic rhinitis [id number] J30.89 [id number] GI GAY RN Allergy [address] [place] [address], [place] [address] 04/11/2024 11:50:22 04/11/2024 12:22:08 Perennial allergic rhinitis [id number] J30.89 [id number] [facility] Allergy [address] [place] [address], [place] [address] 9 04/20/2024 11:33:46 04/20/2024 12:10:19 Perennial allergic rhinitis [id number] J30.89 [id number] PENNY HARVEY, [facility] Allergy [address] [place] [address] 100 [place] [address] 05/19/2024 13:46:00 05/19/2024 13:55:30 Perennial allergic rhinitis [id number] J30.89 [id number] [facility] Allergy [address] [place] [address] 100 [place] [address] 05/30/2024 10:45:08 05/30/2024 11:22:30 Perennial allergic rhinitis [id number] J30.89 [id number] GI GAY RN Allergy [address] [place] [address] 06/07/2024 14:13:19 06/07/2024 14:53:49 Perennial allergic rhinitis [id number] J30.89 [id number] PENNY HARVEY, [facility] Allergy [address] [place] [address],[address] [place] [address] 06/14/2024 12:56:36 06/14/2024 13:42:38 Perennial allergic rhinitis [id number] J30.89 [id number] PENNY HARVEY, [facility] Allergy [address] [place] [address],[address] [place] [address] 9 06/28/2024 11:03:53 06/28/2024 11:33:30 Perennial allergic rhinitis [id number] J30.89 [id number] GI GAY RN Allergy [address] [place] [address],[address] [place] [address] 07/11/2024 13:02:56 07/11/2024 13:09:38 Perennial allergic rhinitis [id number] J30.89 [id number] GI GAY RN Allergy [address] [place] [address],[address] [place] [address] 07/26/2024 10:30:16 07/26/2024 10:36:53 Perennial allergic rhinitis [id number] J30.89 [id number] PENNY HARVEY, [facility] Allergy [address] [place] [address],[address] [place] [address] 08/09/2024 10:01:52 08/09/2024 10:44:43 Perennial allergic rhinitis [id number] J30.89 [id number] [facility] Allergy [address] [place] [address],[address] [place] [address] 08/25/2024 13:03:12 08/25/2024 13:35:27 Perennial allergic rhinitis [id number] J30.89 [id number] [facility], [facility] Allergy [address] [place] [address],[address] [place] [address] 09/07/2024 14:25:50 09/07/2024 15:16:46 Perennial allergic rhinitis [id number] J30.89 [id number] KOBE MARTINEZ PA-C [facility] [place] [address] [facility] [place] [address] 09/20/2024 09:24:33 09/20/2024 09:43:50 Allergic rhinitis [id number] J30.89 [id number] [facility], A Allergy 100 [facility],[address] [place] [address] 09/20/2024 09:25:15 09/20/2024 10:14:39 Perennial allergic rhinitis [id number] J30.89 [id number] PENNY HARVEY, [facility] Allergy 100 [facility],[address] [place] [address] 10/17/2024 13:24:27 10/17/2024 13:54:49 Perennial allergic rhinitis [id number] J30.89 [id number] PENNY HARVEY [facility] Allergy [address] [place] [address],[address] [place] [address] 11/01/2024 11:55:04 11/01/2024 12:07:54 Perennial allergic rhinitis [id number] J30.89 [id number] [facility], [facility] Allergy [address] [place] [address],[address] [place] [address] 11/14/2024 13:13:13 11/14/2024 13:22:48 Perennial allergic rhinitis [id number] J30.89 [id number] PENNY HARVEY [facility] Allergy [address] [place] [address],[address] [place] [address] 11/30/2024 13:18:22 11/30/2024 13:57:49 Perennial allergic rhinitis [id number] J30.89 [id number] PENNY HARVEY [facility] Allergy [address] [place] [address],[address] [place] [address] 12/05/2024 11:48:07 12/05/2024 11:56:16 Perennial allergic rhinitis [id number] J30.89 [id number] GI GAY line palletizer 100 [facility],[address] [place] [address] 12/26/2024 10:07:40 12/26/2024 10:46:33 Perennial allergic rhinitis [id number] J30.89 [id number] PENNY HARVEY, A Allergy 100 [facility],[address] [place] [address] 01/12/2025 14:20:01 01/12/2025 14:44:34 Perennial allergic rhinitis [id number] J30.89 [id number] UZMA MULLIGAN, RMA Allergy 100 [facility],[address] [place] [address] 01/25/2025 13:01:21 01/25/2025 13:57:11 Perennial allergic rhinitis [id number] J30.89 Health Concerns Section Related Observation LastModified by Organization Detai ls LastModified Time None Recorded Concern Status LastModified by Organization Details LastModified Time None Recorded Advance Directives Directive None Recorded Payers Insurance Date Sequence Insurance Name Policy Number Policy Judd Covered Member ID Judd Member ID Guarantor Name 01/25/2025 1 [facility] [id number] Danay Morley [id number] Danay Morley 01/25/2025 2 [place] [facility] Danay Morley [id number] Danay Morley OBGyn Episode No OBEpisode recorded.
== END 2025-02-06 10:55 | disposition home or self-care (01) ==
LOC: HO.HSMS 09:01
PROVIDERS: PCP Nurse Practitioner Women's Health; Visit Provider Nurse Practitioner Family
DX: G43.709 Chronic migraine without aura, not intractable, without status migrainosus (principal); R53.83 Other fatigue
CPT/HCPCS: 99214